=== PATIENT | female | born 1955 | race Two or more races ===

== ENCOUNTER 2018-01-13 10:31 | Outpatient (CLI) | payer OTHER ==
[~2018-01-13 10:31] MED LIST: PERCOCET 5/321 UDTAB PO
== END 2018-01-13 10:41 | disposition home or self-care (01) ==
LOC: RAD 501 10:31
DX: M54.5 Low back pain (principal)

== ENCOUNTER 2018-11-11 08:26 | Outpatient (CLI) | payer OTHER | END 2018-11-11 08:49 | disposition home or self-care (01) | LOC: RAD 501 08:26 | DX: I11.9 Hypertensive heart disease without heart failure (principal) ==

== ENCOUNTER 2019-05-06 11:45 | Outpatient (CLI) | payer OTHER | END 2019-05-06 11:52 | disposition home or self-care (01) | LOC: MAMO-SONO 11:45 | DX: C50.919 Malignant neoplasm of unspecified site of unspecified female breast (principal); Z12.31 Encounter for screening mammogram for malignant neoplasm of breast; Z87.898 Personal history of other specified conditions ==

== ENCOUNTER → 2019-07-13 | Outpatient (CLI) | payer OTHER | END | disposition home or self-care (01) | LOC: NUCLEAR 13:00 | DX: M81.0 Age-related osteoporosis without current pathological fracture (principal); M15.0 Primary generalized (osteo)arthritis ==

== ENCOUNTER 2021-05-16 07:50 | Outpatient (CLI) | payer OTHER | END 2021-05-16 07:58 | disposition home or self-care (01) | LOC: MAMO-SONO 07:50 | PROVIDERS: ATTEND Internal Medicine Geriatric Medicine | DX: Z12.31 Encounter for screening mammogram for malignant neoplasm of breast (principal); C50.919 Malignant neoplasm of unspecified site of unspecified female breast; N64.59 Other signs and symptoms in breast; N64.4 Mastodynia; N60.12 Diffuse cystic mastopathy of left breast; N60.11 Diffuse cystic mastopathy of right breast; Z87.898 Personal history of other specified conditions ==

== ENCOUNTER 2021-08-27 07:07 | Outpatient (CLI) | payer OTHER | END 2021-08-27 07:16 | disposition home or self-care (01) | LOC: RAD 07:07 | PROVIDERS: ATTEND Physical Medicine & Rehabilitation | DX: M54.2 Cervicalgia (principal); M54.6 Pain in thoracic spine; M54.59 Other low back pain; M43.8X2 Other specified deforming dorsopathies, cervical region ==

== ENCOUNTER 2021-09-12 13:17 | Outpatient (CLI) | payer OTHER | END 2021-09-12 13:26 | disposition home or self-care (01) | LOC: MRI 13:17 | PROVIDERS: ATTEND Internal Medicine Geriatric Medicine | DX: G31.1 Senile degeneration of brain, not elsewhere classified (principal) | CPT/HCPCS: 70551 ==

== ENCOUNTER 2023-04-22 07:07 | Outpatient (CLI) | payer OTHER | END 2023-04-22 07:08 | disposition home or self-care (01) | LOC: NUCLEAR 07:07 | PROVIDERS: ATTEND Internal Medicine | DX: I25.118 Atherosclerotic heart disease of native coronary artery with other forms of angina pectoris (principal); R06.00 Dyspnea, unspecified | CPT/HCPCS: 78452; 93017; A9500 ==

== ENCOUNTER 2024-02-04 08:08 | Outpatient (CLI) | payer OTHER | END 2024-02-04 08:15 | disposition home or self-care (01) | LOC: MAMO-SONO 08:08 | PROVIDERS: ATTEND Internal Medicine Geriatric Medicine | DX: C50.919 Malignant neoplasm of unspecified site of unspecified female breast (principal); N63.0 Unspecified lump in unspecified breast; N64.4 Mastodynia; N60.12 Diffuse cystic mastopathy of left breast; N60.11 Diffuse cystic mastopathy of right breast; Z12.31 Encounter for screening mammogram for malignant neoplasm of breast ==

== ENCOUNTER 2025-07-21 10:24 | Outpatient (CLI) | payer OTHER | END 2025-07-21 10:26 | disposition home or self-care (01) | LOC: NUCLEAR 10:24 | PROVIDERS: ATTEND Physical Medicine & Rehabilitation | DX: M81.0 Age-related osteoporosis without current pathological fracture (principal) ==

== ENCOUNTER 2025-08-18 09:15 | Outpatient (CLI) | payer OTHER | END 2025-08-18 09:33 | disposition home or self-care (01) | LOC: MRI 09:15 | PROVIDERS: ATTEND Physical Medicine & Rehabilitation | DX: M54.50 Low back pain, unspecified (principal); M53.3 Sacrococcygeal disorders, not elsewhere classified | CPT/HCPCS: 72149; Q9965 ==